=== PATIENT | male | born 1970 | race Hispanic/Latino ===

== ENCOUNTER 2020-07-13 10:00 | Inpatient (IN) | payer OTHER ==
[~2020-07-13] VITALS: Ht 172.7 cm; Wt 112.7 kg
[2020-07-13 11:38] LABS: BASOPHILS % (AUTO) 0.8 % (0.0-5.0); EOSINOPHILS % (AUTO) 2.4 % (0.0-8.0); HEMATOCRIT 46.4 % (42-54); LYMPHOCYTES % (AUTO) 27.3 % (21.0-51.0); MEAN CORPUSCULAR HEMOGLOBIN 31.8 pg (27.0-33.0); MEAN CORPUSCULAR HGB CONC 33.6 g/dL (32.0-36.0); MEAN CORPUSCULAR VOLUME 94.5 fL (79-99); MONOCYTES % (AUTO) 9.8 % (3.0-13.0); NEUTROPHILS % (AUTO) 59.5 % (40.0-77.0); PLATELET COUNT (AUTO) 230 K/uL (130-400); RED BLOOD CELL COUNT(AUTO) 4.91 MIL/uL (4.50-6.20); RED CELL DISTRIBUTION WIDTH 11.9 % (11.0-15.5); WHITE BLOOD COUNT (AUTO) 5.9 K/uL (4.8-10.8)
[2020-07-13 11:54] LABS: CREATININE 0.8 mg/dL (0.5-1.5); POTASSIUM 4.4 mmol/L (3.5-5.1)
[2020-07-13 12:05] LABS: INR 1.07 (0.85-1.15); PROTHROMBIN TIME 11.5 SEC (9.6-11.6)
[2020-07-13 13:08] LABS: APPEARANCE,URINE Clear (CLEAR); BILIRUBIN,URINE Negative (NEGATIVE); COLOR,URINE Yellow (YELLOW); GLUCOSE, URINE (UA) Negative (NEGATIVE); KETONES,URINE Negative (NEGATIVE); LEUKOCYTE ESTERASE ,URINE Negative (NEGATIVE); NITRATE,URINE Negative (NEGATIVE); OCCULT BLOOD,URINE Negative (NEGATIVE); PROTEIN,URINE Negative (NEGATIVE)
[2020-07-19 09:45] VITALS: BP 130/82
[2020-07-19] MEDS ORDERED: METF-446 PO (10:22)
[2020-07-19] MEDS ORDERED: OMEP20CA12 PO (10:22)
[2020-07-19] MEDS ORDERED: CETI-89 PO (10:22)
[2020-07-19] MEDS ORDERED: CHOL400T33 PO (10:22)
[2020-07-20] VITALS (23 sets, daily range): BP systolic 130–155; BP diastolic 80–98
[2020-07-20] MEDS: CEFAZOLIN SODIUM 1 GM VIAL IVP SCH ×4 (05:00→23:21)
[2020-07-20] MEDS ORDERED: SODIUM CHLORIDE 0.9% 1000ML 1,000 ML IV ONE (06:33)
[2020-07-20] MEDS ORDERED: TRANEXAMIC ACID 1000MG/10ML ONE ×2 (07:00→11:16)
[2020-07-20] MEDS ORDERED: CEFAZOLIN SODIUM 1 GM VIAL ONE ×2 (07:00→10:12)
[2020-07-20] MEDS ORDERED: ROCURONIUM 10MG/1ML SYR 10 MG/ML ML ONE (07:42)
[2020-07-20] MEDS ORDERED: SUCCINYLCHOLINE CHLORIDE 20 MG/ML 10 ML VIAL ONE (07:42)
[2020-07-20] MEDS ORDERED: FENTANYL CITRATE PF 50 MCG/1 ML 2ML VIAL ONE ×2 (07:42→10:30)
[2020-07-20] MEDS ORDERED: PROPOFOL 10 MG/ML 20ML VIAL IV ONE (07:42)
[2020-07-20] MEDS ORDERED: LIDOCAINE PF 2% 5ML ABBOJECT ONE (07:42)
[2020-07-20] MEDS ORDERED: ROPIVACAINE 0.5% 5MG/ML 30ML IJ ONE (07:47)
[2020-07-20] MEDS ORDERED: CEFAZOLIN SODIUM 1 GM VIAL IRRIG ONE ×2 (09:13→10:13)
[2020-07-20] MEDS ORDERED: MEPERIDINE-PF 25 MG/ML SYG ONE ×4 (10:00→11:45)
[2020-07-20] MEDS ORDERED: GLYCOPYRROLATE 1 MG/5 ML SYRINGE ONE (10:00)
[2020-07-20] MEDS ORDERED: NEOSTIGMINE 5MG/5ML SYR IV ONE (10:00)
[2020-07-20] MEDS ORDERED: KETOROLAC TROMETHAMINE 30MG/ML ONE (10:01)
[2020-07-20] MEDS ORDERED: ONDANSETRON HCL 4 MG/2 ML VIAL ONE (10:01)
[2020-07-20] MEDS: ACETAMINOPHEN EXTRA STRENGTH 500 MG TABLET PO SCH ×2 (10:45→18:43)
[2020-07-20] MEDS ORDERED: ONDANSETRON HCL 4 MG/2 ML VIAL IVP PRN (10:45)
[2020-07-20] MEDS ORDERED: POTASSIUM CHLORIDE 10% ELIXIR 20 MEQ/15 ML UDCUP PO PRN (10:45)
[2020-07-20] MEDS ORDERED: CALCIUM CARBONATE 500 MG TABLET PO PRN (10:45)
[2020-07-20] MEDS ORDERED: POTASSIUM CHLORIDE 20MEQ/100ML 100 ML IV PRN (10:45)
[2020-07-20] MEDS ORDERED: FERROUS FUMARATE 324 MG TABLET PO PRN (10:45)
[2020-07-20] MEDS ORDERED: DiphenhydrAMINE HCL 50 MG/ML VIAL IVP PRN (10:45)
[2020-07-20] MEDS ORDERED: TEMAZEPAM 15 MG CAPSULE PO PRN (10:45)
[2020-07-20] MEDS ORDERED: LIDOCAINE HCL-MPF 1% 2ML VIAL IV PRN (10:45)
[2020-07-20] MEDS ORDERED: TRAMADOL HCL 50 MG TABLET PO PRN (10:45)
[2020-07-20] MEDS ORDERED: POTASSIUM CHLORIDE 20 MEQ ERTAB PO PRN (10:45)
[2020-07-20] MEDS ORDERED: OXYCODONE HCL 5 MG TAB PO PRN (10:45)
[2020-07-20] MEDS: INSULIN HUMULIN R 100 UNIT/ML 3ML SQ SCH ×3 (11:30→20:28)
[2020-07-20] MEDS: SODIUM CHLORIDE 0.9% 1000ML 1,000 ML IV SCH ×2 (12:22→21:15)
[2020-07-20] MEDS: KETOROLAC TROMETHAMINE 15MG/ML IV PRN ×2 (12:22→18:45)
[2020-07-20] MEDS: OXYCODONE HCL 5 MG TAB PO PRN ×2 (15:35→19:41)
--- NOTE | 2020-07-20 17:15 | NUR ---
CM NOTE/ORI/IA PATIENT S/P SURGERY. NEXT OF KIN CALLED, AKIL HUYEN HUGGINSY, SPOUSE. ORI COMPLETED FOR ANY DME AND HOME HEALTH IN [facility]WORK [facility]RU [facility]. PER SPOUSE, PATIENT LIVES WITH HER AND THEIR 2 CHILDREN (1 MINOR/1ADULT), INDEPENDENT WITH ADLS, HAS USE OF CANE, NO PROVIDER OR HOME HEALTH, AND FEELS SAFE TO DC HOME ONCE DISCHARGE FROM HOSPITAL.
[2020-07-20] MEDS: METFORMIN HCL 500 MG TABLET PO SCH (17:26)
[2020-07-20] MEDS: PREGABALIN 25 MG CAP PO SCH (19:40)
[2020-07-20] MEDS: ASPIRIN 81MG TAB.CHEW PO SCH (19:40)
[2020-07-20] MEDS: CELECOXIB 200 MG CAP PO SCH (19:40)
[2020-07-20] MEDS ORDERED: NON-FORMULARY MEDICATION 1 EACH (Metformin HCl 500 MG) PO SCH (21:00)
[2020-07-20] MEDS ORDERED: METOCLOPRAMIDE 10 MG/2 ML VIAL IV PRN (21:30)
[2020-07-20] MEDS ORDERED: NALOXONE HCL 0.4 MG/1 ML ML IVP PRN (21:30)
[2020-07-20] MEDS ORDERED: PROMETHAZINE HCL 25 MG/ML 1ML AMPULE IM PRN (21:30)
[2020-07-20] MEDS ORDERED: HYDROMORPHONE PCA 10 MG/50 ML 50 ML IV PRN (21:30)
[2020-07-20] MEDS: HYDROMORPHONE HCL 2 MG/ML VIAL IVP PRN ×2 (21:59→23:23)
[2020-07-21] VITALS (7 sets, daily range): BP systolic 127–142; BP diastolic 77–84
[2020-07-21] MEDS: OXYCODONE HCL 5 MG TAB PO PRN ×4 (00:26→21:02)
[2020-07-21] MEDS: HYDROMORPHONE HCL 2 MG/ML VIAL IVP PRN ×4 (01:08→05:57)
[2020-07-21] MEDS: ACETAMINOPHEN EXTRA STRENGTH 500 MG TABLET PO SCH ×3 (01:50→23:36)
[2020-07-21 03:31] LABS: HEMATOCRIT 36.5 % (42-54); MEAN CORPUSCULAR HEMOGLOBIN 31.9 pg (27.0-33.0); MEAN CORPUSCULAR HGB CONC 33.4 g/dL (32.0-36.0); MEAN CORPUSCULAR VOLUME 95.3 fL (79-99); RED BLOOD CELL COUNT(AUTO) 3.83 MIL/uL (4.50-6.20); WHITE BLOOD COUNT (AUTO) 9.8 K/uL (4.8-10.8)
[2020-07-21 03:42] LABS: POTASSIUM 3.7 mmol/L (3.5-5.1)
[2020-07-21] MEDS: INSULIN HUMULIN R 100 UNIT/ML 3ML SQ SCH ×4 (05:22→21:00)
[2020-07-21] MEDS: SODIUM CHLORIDE 0.9% 1000ML 1,000 ML IV SCH (06:32)
[2020-07-21] MEDS ORDERED: NON-FORMULARY MEDICATION 1 EACH (Cetirizine HCl (Zyrtec) 10 MG) PO SCH (09:00)
[2020-07-21] MEDS ORDERED: NON-FORMULARY MEDICATION 1 EACH (Omeprazole 20 MG) PO SCH (09:00)
[2020-07-21] MEDS: CHOLECALCIFEROL 5000 UNIT PO SCH (09:00)
[2020-07-21] MEDS: CETIRIZINE HCL 5 MG TABLET PO SCH (09:34)
[2020-07-21] MEDS: PREGABALIN 25 MG CAP PO SCH ×2 (09:34→21:01)
[2020-07-21] MEDS: POLYETHYLENE GLYCOL 3350 17 GM POWD.PACK PO SCH (09:34)
[2020-07-21] MEDS: PANTOPRAZOLE SODIUM 40 MG TABLET.DR PO SCH (09:34)
[2020-07-21] MEDS: ASPIRIN 81MG TAB.CHEW PO SCH ×2 (09:34→21:01)
[2020-07-21] MEDS: CELECOXIB 200 MG CAP PO SCH ×2 (09:34→21:01)
[2020-07-21] MEDS: METFORMIN HCL 500 MG TABLET PO SCH ×2 (09:37→17:00)
--- NOTE | 2020-07-21 10:00 | NUR ---
CM Note: [facility] and D[facility] CM [facility]ed order, clinicals, [facility], confirmation received. Spoke to Demetrice received request and forwarded to [facility] already. Pt pending approval and assign HH and DME. Aware dcp tomorrow. Primary nurse aware. CM to cont to follow up.
[2020-07-22] MEDS: OXYCODONE HCL 5 MG TAB PO PRN ×3 (02:55→11:59)
--- NOTE | 2020-07-22 03:24 | NUR ---
DILAUDID EVP GENERAL COUNSEL IS AT 0ML [facility]OLUME. DISCUSSED WITH PATENT, HE STATES PAIN HAS IMPROVED. WILL CONT WITH PO PRN PAIN MEDICATIONS. PT CURRENTLY SITTING AT BESIDE CHAIR. CALL VELASQUEZ IS WITHIN REACH. INSTRUCTED TO CALL FOR ASSISTANCE IF NEEDED. PT VOICED AGREEMENT. WILL CONT TO MONITOR.
[2020-07-22 03:45] VITALS: BP 143/81
[2020-07-22 03:58] LABS: HEMATOCRIT 35.9 % (42-54); MEAN CORPUSCULAR HEMOGLOBIN 32.3 pg (27.0-33.0); MEAN CORPUSCULAR HGB CONC 34.3 g/dL (32.0-36.0); MEAN CORPUSCULAR VOLUME 94.2 fL (79-99); RED BLOOD CELL COUNT(AUTO) 3.81 MIL/uL (4.50-6.20); WHITE BLOOD COUNT (AUTO) 11.4 K/uL (4.8-10.8)
[2020-07-22 04:06] LABS: POTASSIUM 3.9 mmol/L (3.5-5.1)
[2020-07-22] MEDS: INSULIN HUMULIN R 100 UNIT/ML 3ML SQ SCH ×2 (05:16→11:30)
[2020-07-22 07:30] VITALS: BP 147/89
[2020-07-22] MEDS: ACETAMINOPHEN EXTRA STRENGTH 500 MG TABLET PO SCH (07:51)
[2020-07-22] MEDS: METFORMIN HCL 500 MG TABLET PO SCH (07:52)
[2020-07-22] MEDS: CHOLECALCIFEROL 5000 UNIT PO SCH (09:00)
--- NOTE | 2020-07-22 09:30 | NUR ---
JAYDE Note: [facility] approval CM spoke to Demetrice /NAVDEEP, has approval for HH, assigned [facility] . As per Demetrice working on approval for DME standard walker no wheels, aware pt will dc today. Made aware hospital will lend pt walker temporarily, pt to return DME once own standard walker no wheels and 3 in 1 chair delivered at home. Demetrice verbalized understanding. Dr Bird updated, said will come between - today to DC pt. Pt safe to DC to home via private car once MD clear. Primary nurse Nicci RN and charge nurse Demetrice RN aware. CM to cont to follow up.
[2020-07-22] MEDS: CETIRIZINE HCL 5 MG TABLET PO SCH (10:29)
[2020-07-22] MEDS: PANTOPRAZOLE SODIUM 40 MG TABLET.DR PO SCH (10:29)
[2020-07-22] MEDS: CELECOXIB 200 MG CAP PO SCH (10:30)
[2020-07-22] MEDS: PREGABALIN 25 MG CAP PO SCH (10:30)
[2020-07-22] MEDS: POLYETHYLENE GLYCOL 3350 17 GM POWD.PACK PO SCH (10:30)
[2020-07-22] MEDS: ASPIRIN 81MG TAB.CHEW PO SCH (10:30)
[2020-07-22] MEDS ORDERED: BISACODYL 10 MG SUPP.RECT RC SCH (10:45)
[2020-07-22 11:00] VITALS: BP 138/86
[2020-07-22] MEDS ORDERED: HYDR-4457 PO (11:42)
[2020-07-22] MEDS ORDERED: ASPI-1005 PO (11:42)
--- NOTE | 2020-07-22 16:00 | NUR ---
D/C REPORT CALLED STEFANO AT [facility].
--- NOTE | 2020-07-22 16:32 | NUR ---
D/C INSTRUCTIONS FOR AFTER CARE FOR A KNEE REPLACEMENT GIVEN, I GAVE PT PERSCRIPTIONS EARLIER SO HIS COULD GET THEM FILLED AT [facility] BEFORE THEY CLOSED AT 4PM; [employer] DRESSING CHANGED TO LEFT KNEE USING CLEAN TECHNIQUE--PT HAS A WELL APPROX. INC. LINE WITH ABSORBABLE SUTURES IN PLACE. NO DRAINAGE, SLIGHT REDNESS, SLIGHT BRUISING AND GENERALIZED EDEMA TO THE ENTIRE KNEE--PT JOSE. DRESSING CHANGE WELL--PT INSTRUCTED ON SIGNS AND SYMPTOMS OF INFECTION TO WATCH FOR AND REPORT, THAT DRESSING MAY GET WET IN SHOWER AFTER BATTERY PACK REMOVED AND THAT DRESSING SHOULD BE REMOVED NEXT SATURDAY BY HOME HEALTH; PT WAS ALSO INSTRUCTED ON ACTIVITY LEVEL, AMBULATE WITH WALKER, F/U APPOINTMENTS, SIGNS AND SYMPTOMS OF PROBLEMS TO REPORT TO MD, AND PERSCRIPTION OF NORCO AND ASPIRIN FOR BLOOD THINNER AND PAIN MEDICATION; PT STATED UNDERSTANDING OF ALL INSTRUCTIONS; IV ACCESS REMOVED, PT'S HER TO PICK HIM UP AND DRIVE HIM HOME.
[2020-07-23] MEDS ORDERED: BISACODYL 10 MG SUPP.RECT RC PRN (10:45)
== END 2020-07-22 16:35 | disposition home health service (06) | DRG 470 ==
LOC: EDSTATUS 10:00 → DAHIP 07-20 05:56 → 3AH 07-20 12:15
PROVIDERS: ADMIT Orthopaedic Surgery; ATTEND Orthopaedic Surgery
PROC: 0SRD0J9 Replacement of Left Knee Joint with Synthetic Substitute, Cemented, Open Approach (ICD-10-PCS; principal; 2020-07-20 08:00)
DX: M17.32 Unilateral post-traumatic osteoarthritis, left knee (principal); Z20.828 Contact with and (suspected) exposure to other viral communicable diseases; G89.29 Other chronic pain; R26.9 Unspecified abnormalities of gait and mobility; M21.162 Varus deformity, not elsewhere classified, left knee; E11.9 Type 2 diabetes mellitus without complications; K21.9 Gastro-esophageal reflux disease without esophagitis; E66.9 Obesity, unspecified; Z68.37 Body mass index [BMI] 37.0-37.9, adult
CPT/HCPCS: 36415; 80048; 81003; 82948; 85025; 85027; 85610; 87641; 93005; 97039; G0378; J0330; J0690; J1170; J1885; J2001; J2175; J2405; J2704; J2710; J2795; J3010; J3490; J7030; J7120; U0003